=== PATIENT | female | born 1985 | race Asian ===

== ENCOUNTER 2016-06-27 00:30 | Inpatient (IN) | payer SELFPAY ==
[~2016-06-27] VITALS: Ht 170 cm; Wt 79.8 kg
[2016-06-27] MEDS ORDERED: PROMETHAZINE 25 MG/ML VIAL IVP PRN (00:50)
[2016-06-27] MEDS ORDERED: METHYLERGONOVINE 0.2 MG/ML AMP IM PRN (00:50)
[2016-06-27] MEDS ORDERED: CARBOPROST 250 MCG/ML AMP IM PRN (00:50)
[2016-06-27] MEDS ORDERED: OXYTOCIN 20 UNITS/LR PREMIX 1,000 ML IV PRN (00:50)
[2016-06-27] MEDS ORDERED: NALBUPHINE HYDROCHLORIDE 10 MG/ML VIAL IVP PRN (00:50)
[2016-06-27 00:58] VITALS: BP 115/70
[2016-06-27 01:36] LABS: BASOPHILS % (AUTO) 0.6 % (0.0-2.0); EOSINOPHILS # (AUTO) 0.1 K/uL (0-0.4); EOSINOPHILS % (AUTO) 1.6 % (0.0-4.0); HEMATOCRIT 39.2 % (36-48); HEMOGLOBIN 13.1 g/dL (12.0-16.0); LYMPHOCYTES # (AUTO) 1.5 K/uL (2.5-16.5); MEAN CORPUSCULAR HEMOGLOBIN 32 pg (27-31); MEAN CORPUSCULAR HGB CONC 34 g/dL (33-37); MEAN CORPUSCULAR VOLUME 95 fL (80-94); MONOCYTES # (AUTO) 0.6 K/uL (0.8-1.0); MONOCYTES % (AUTO) 7.1 % (1.7-9.3); NEUTROPHILS # (AUTO) 5.9 K/uL (1.8-7.7); NEUTROPHILS % (AUTO) 71.7 % (42.2-75.2); PLATELET COUNT (AUTO) 173 K/uL (140-450); RED BLOOD CELL COUNT(AUTO) 4.14 MIL/uL (4.20-5.40); RED CELL DISTRIBUTION WIDTH 12.5 % (11.6-13.7); WHITE BLOOD COUNT (AUTO) 8.1 K/uL (4.8-10.8)
[2016-06-27 01:38] LABS: APPEARANCE,URINE CLEAR (CLEAR); BILIRUBIN,URINE NEGATIVE (NEGATIVE); BLOOD, URINE 2+ (NEGATIVE); COLOR,URINE YELLOW (YELLOW); LEUKOCYTE ESTERASE ,URINE NEGATIVE (NEGATIVE); NITRITE, URINE NEGATIVE (NEGATIVE); PROTEIN,URINE NEGATIVE (NEGATIVE); UGLUCOSE NEGATIVE (NEGATIVE); UROBILINOGEN,URINE 0.2 EU/dL (0.2 - 1)
[2016-06-27] MEDS: LACTATED RINGERS 1,000 ML IV SCH ×2 (01:45→07:47)
[2016-06-27] MEDS ORDERED: OXYTOCIN 20 UNITS/LR PREMIX 1,000 ML IV ONE (02:03)
[2016-06-27 03:16] LABS: WBC,URINE 0-5 (RARE) /HPF (0-5)
[2016-06-27 03:17] LABS: BACTERIA,URINE FEW /HPF (None Seen)
[2016-06-27] MEDS ORDERED: BUPIVACAINE 0.125%/NS PREMIX 250 ML ONE (06:04)
--- NOTE | 2016-06-27 08:05 | NUR ---
PATIENT HAS BEEN SCREENED AND CATEGORIZED LOW NUTRITION RISK. PATIENT WILL BE SEEN WITHIN 7 DAYS OF ADMISSION. 07/03/[address]
[2016-06-27] MEDS ORDERED: OXYTOCIN 10 UNITS/ML VIAL ONE (15:46)
[2016-06-27] MEDS ORDERED: IBUPROFEN 800 MG TAB PO PRN (17:35)
[2016-06-27] MEDS ORDERED: TEMAZEPAM 15 MG CAP PO PRN (17:35)
[2016-06-27] MEDS ORDERED: WITCH HAZEL 40 PAD PACKAGE TP PRN (17:35)
[2016-06-27] MEDS ORDERED: MEASLES, MUMPS, AND RUBELLA 1 VIAL SQVAC PRN (17:35)
[2016-06-27] MEDS ORDERED: SODIUM PHOSPHATE 118 ML ENEM RC PRN (17:35)
[2016-06-27] MEDS ORDERED: BENZOCAINE/MENTHOL 20%-0.5% 60 GM CAN TP PRN (17:35)
[2016-06-27] MEDS ORDERED: oxyCODONE/APAP 5/325 MG 1 TAB TAB PO PRN (17:35)
[2016-06-27] MEDS ORDERED: DOCUSATE SOD/SENNA 50/8.6 MG 1 TAB PO SCH (21:00)
[2016-06-27] MEDS: HYDROcodone/APAP 5/325 MG 1 TAB TAB PO PRN (22:03)
[2016-06-28] MEDS: HYDROcodone/APAP 5/325 MG 1 TAB TAB PO PRN ×3 (03:32→21:57)
[2016-06-28 07:20] LABS: HEMATOCRIT 35.9 % (36-48); HEMOGLOBIN 12.1 g/dL (12.0-16.0)
== END 2016-06-29 14:15 | disposition home or self-care (01) | DRG 775 ==
LOC: MLD 00:30 → MFCC 17:55
PROVIDERS: ADMIT Obstetrics & Gynecology; ATTEND Obstetrics & Gynecology
PROC: 10E0XZZ Delivery of Products of Conception, External Approach (ICD-10-PCS; principal; 2016-06-27)
PROC: 3E0R3CZ (ICD-10-PCS; 2016-06-27)
DX: O80 Encounter for full-term uncomplicated delivery (principal); Z3A.39 39 weeks gestation of pregnancy; Z37.0 Single live birth; Z23 Encounter for immunization
CPT/HCPCS: 36415; 59409; 81001; 85018; 85025; 86592; 86886; 86900; 86901; 90715; J2590; J3490; J7120